=== PATIENT | female | born 1980 | race Caucasian/White ===

== ENCOUNTER 2018-10-29 10:55 | Emergency (ER) | payer OTHER ==
[2018-10-29 11:11] VITALS: BP 116/72; PULSE 64; TEMP 98.4; BMI 24.0
--- NOTE | 2018-10-29 11:26 | PDOC ---
History of Present Illness - General Chief Complaint: Pain, Acute Stated Complaint: ABD PAIN Time Seen by Provider: 10/29/18 11:24 - History of Present Illness Initial Comments: 38yo F with PMH of HTN presenting with lower abdominal pain. Patient states she has had this pain for the past five days. However, since her pain went from intermittent to constant, she decided to come to the ED today. She rates it 8/ 10. No past surgical history. Last bowel movement was yesterday and was a normal formed brown stool without blood. She denies nausea or vomiting. No dysuris, frequency, or hematuria. Patient also reports that she has had vaginal bleeding after the last three times she had sexual intercourse. She is unable to quantify the amount of blood. Denies dyspareunia. Patient endorses a foul odor coming from her vaginal as well as a cheese-like discharge x 2 weeks. She had something similar like this several years ago which went away on its own. Last menstrual period was 10/16/18. No fevers, chills, chest pain, or shortness of breath. Past History - Past Medical History Allergies/Adverse Reactions: Allergies Allergy/AdvReac Type Severity Reaction Status Date / Time No Known Allergies Allergy Verified 10/29/18 11:10 Home Medications: Ambulatory Orders metroNIDAZOLE [Flagyl -] 500 mg PO DAILY #13 tablet 10/29/18 COPD: No GI Disorders: No Hypercholesterolemia: No - Immunization History Immunization Up to Date: No - Suicide/Smoking/Psychosocial Hx Smoking History: Never smoked Have you smoked in the past 12 months: No Information on smoking cessation initiated: No Hx Alcohol Use: No Drug/Substance Use Hx: No Review of Systems - Review of Systems Comments:: Constitutional: no fever, no chills HEENT: no throat pain, no dysphagia Cardiovascular: no chest pain, no palpitations Respiratory: no cough, no shortness of breath Gastrointestinal: +abdominal pain, no nausea Genitourinary: no dysuria, no frequency Musculoskeletal: no myalgia, no arthralgia Skin: no rash, no itching Neurologic: no headache, no weakness *Physical Exam - Vital Signs Last Vital Signs Temp Pulse Resp BP Pulse Ox 98.4 F 64 18 116/72 100 10/29/18 11:09 10/29/18 11:09 10/29/18 11:09 10/29/18 11:09 10/29/18 11:09 - Physical Exam Comments: General: Awake, alert, and fully oriented, in no acute distress Head: No signs of trauma Eyes: EOMI, sclera anicteric ENT: Moist mucus membranes Neck: Normal ROM, supple Lungs: Lungs clear, Normal breath sounds Cardio: Regular rhythm, S1 and S2 present Abdomen: Tender to palpation in suprapubic region. Soft, nondistended. No guarding, no rebound, no masses. No CVA tenderness. Extremities: Normal range of motion, Distal pulses present SKIN: Warm, Dry, normal turgor Neurologic: Cranial nerves II through XII grossly intact. Normal speech Pelvic: External genitalia without erythema, exudate or discharge. Vaginal vault is with [id number]-[id number] discharge. Cervix is of normal color without lesion. The os is closed. There is no bleeding noted. Uterus is noted to be of appropriate size and nontender. No cervical motion tenderness is seen. No masses are palpated. The adnexa are without masses or tenderness. ED Treatment Course - LABORATORY CBC & Chemistry Diagram: 10/29/18 12:15 10/29/18 12:15 Medical Decision Making - Medical Decision Making 38yo F with PMH of HTN presenting with lower abdominal pain. DDX including but not limited to bacterial vaginosis, trichomoniasis, UTI CBC, CMP, UA, UCx No anemia or leukocytosis Electrolytes unremarkable Lipase elevated, however, not greater than three times the upper limit of normal so low suspicion for pancreatitis UA without UTI As laboratory is unable to do wet mount, will presumptively treat for BV/ Trichomoniasis with flagyl Patient discharged 10/29/18 13:47 *DC/Admit/Observation/Transfer Diagnosis at time of Disposition: Vaginal discharge - Discharge Dispostion Disposition: HOME Condition at time of disposition: Stable - Prescriptions Prescriptions: metroNIDAZOLE [Flagyl -] 500 mg PO DAILY #13 tablet - Referrals Referrals: Jere Handley MD [Primary Care Provider] - - Patient Instructions Printed Discharge Instructions: DI for Bacterial Vaginosis, DI for Vaginal Discharge, DI for Trichomoniasis Additional Instructions: You came into the ED for lower abdominal pain and vaginal bleeding. Since you may have an infection called bacterial vaginosis or trichomoniasis, we will treat you with antibiotics. Do NOT drink alcohol while taking this medicine. Prescription has been sent to your pharmacy. Follow up with your epic prelude analyst physician this week to discuss this ED visit and for further evaluation of your symptoms. Your care is not complete until you do so. Call and make an appointment. Immediate medical attention is required if you experience: high fevers, chills, persistent vomiting, stop urinating, or any new or concerning symptoms.If you think you have an emergency, call for medical help right away. === Entr en el servicio de urgencias por dolor abdominal bajo y sangrado vaginal. Renae es posible que tenga lani infeccin llamada vaginosis bacteriana o tricomoniasis, lo trataremos con antibiticos. NO kristian alcohol mientras est tomando layne medicamento. La receta ortiz sido enviada a matute farmacia. Ashok un seguimiento con matute mdico obstetra / gineclogo esta semana para hablar sobre esta visita al [place] y para lani evaluacin adicional de nate sntomas. Matute cuidado no est completo hasta que lo ashok. Llame y ashok lani dolly. Se requiere atencin mdica inmediata si experimenta: fiebre ana m, escalofros, vmitos persistentes, dejar de orinar, o cualquier sntoma nuevo o preocupante. Si marshall que tiene lani emergencia, llame a un mdico de inmediato. - Post Discharge Activity
--- NOTE | 2018-10-29 11:29 | PDOC ---
Attending Attestation - HPI HPI: 10/29/18 12:29 The patient is a 38-year-old female, with no past medical history, who presents to the ED with 5 days of diffuse lower abdominal pain. Pain initially was intermittent, but is now becoming more constant which prompted her visit, 8/10 in severity. She is also endorsing vaginal bleeding after intercourse, but she denies having any pain during intercourse. She does note having cheesy vaginal discharge for the past 2 weeks that is foul-smelling. The patient denies any frequency, urgency, hesitancy, dysuria, or hematuria. Denies any fevers, chills, nausea, vomiting, diarrhea, or constipation. Denies any chest pain or shortness of breath. Allergies: NKA. Social History: None reported Surgical History: None reported PCP: Dr. Jere Handley <Gisselle Nathan - Last Filed: 10/29/18 12:30> - Resident Resident Name: Evelyn Contreras - Physicial Exam PE: 10/31/18 17:13 Agree with resident exm. Patient is alert and oriented x 4. Lungs are clear. Heart: regular rate and rhythm with no murmurs. Abdomen soft, non tender, non distended. - Medical Decision Making 10/31/18 17:15 Pt presents to the ED complaining of of pelvic pain after intercourse. also complaining of increased vaginal discharge. Pelvic exam consistent with trichomonas. Will treat with flagyl and send wet prep. <Chika Brown - Last Filed: 10/31/18 17:19> Attestations - Attestations 10/29/18 12:30 Documentation prepared by Gisselle Nathan, acting as medical records field technician for Chika Brown MD. <Gisselle Nathan - Last Filed: 10/29/18 12:30>
[2018-10-29 12:37] LABS: BASO % 0.5 % (0-2.0); EOS % 4.5 % (0-4.5); HEMATOCRIT 38.1 % (32.4-45.2); HEMOGLOBIN 12.9 GM/dL (10.7-15.3); LYMPH % 32.5 % (8-40); MCHC 33.9 g/dl (32.0-36.0); MEAN CELL VOLUME 85.6 fl (80-96); MEAN PLT VOLUME 8.1 fl (7.5-11.1); MONO % 7.3 % (3.8-10.2); NEUT % 55.2 % (42.8-82.8); PLATELET COUNT 212 K/MM3 (134-434); RBC 4.45 M/mm3 (3.60-5.2); RDW 13.3 % (11.6-15.6); WHITE BLOOD COUNT 6.1 K/mm3 (4.0-10.0)
[2018-10-29] MEDS ORDERED: metroNIDAZOLE 250 MG TABLET PO ONE (12:51)
[2018-10-29 13:01] LABS: ALBUMIN 3.9 g/dl (3.4-5.0); ALK PHOS 68 U/L (45-117); ANION GAP 3 MMOL/L (8-16); BILIRUBIN,TOTAL 0.2 mg/dL (0.2-1); BLOOD UREA NITROGEN 18 mg/dL (7-18); CALCIUM 8.9 mg/dL (8.5-10.1); CHLORIDE 106 mmol/L (98-107); CO2 27 mmol/L (21-32); CREATININE 0.8 mg/dL (0.55-1.3); GLUCOSE,RANDOM 69 mg/dL (74-106); LIPASE 489 U/L (73-393); POTASSIUM 3.7 mmol/L (3.5-5.1); SGOT/AST 18 U/L (15-37); SGPT/ALT 24 U/L (13-61); SODIUM 135 mmol/L (136-145); TOT PROT 7.8 g/dl (6.4-8.2)
[2018-10-29] MEDS ORDERED: metroNIDAZOLE 250 MG TABLET ONE (13:03)
[2018-10-29 13:37] LABS: PH,URINE 6.5 (5.0-8.0); URINE APPEARANCE CLEAR; URINE BILIRUBIN NEGATIVE (NEGATIVE); URINE COLOR YELLOW; URINE GLUCOSE (UA) NEGATIVE (NEGATIVE); URINE KETONE NEGATIVE (NEGATIVE); URINE LEUK ESTERASE TRACE (NEGATIVE); URINE NITRITE NEGATIVE (NEGATIVE); URINE PROTEIN NEGATIVE (NEGATIVE); URINE UROBILINOGEN 0.2 mg/dL (0.2-1.0)
[2018-10-29 14:23] LABS: EPI CELLS 2.5 /HPF (0-5/HPF); URINE BACTERIA 1574.6 /hpf (NEGATIVE); URINE RBC 0.3 /hpf (0-4); URINE WBC 4.7 /hpf (0-5)
== END 2018-10-29 14:01 | disposition home or self-care (01) ==
LOC: JER 10:55
DX: N89.8 Other specified noninflammatory disorders of vagina (principal); I10 Essential (primary) hypertension
CPT/HCPCS: 36415; 80053; 81003; 83690; 84703; 85025; 87086; 87186; 99284-25

== ENCOUNTER 2023-07-10 11:21 | Emergency (ER) | payer OTHER ==
[2023-07-10 11:47] VITALS: BP 120/80; PULSE 85; RESP 18; TEMP 98.6; BMI 21.2
[2023-07-10] MEDS ORDERED: MECLIZINE HCL 25 MG TABLET (FP) PO ONE (12:35)
[2023-07-10] MEDS ORDERED: ACETAMINOPHEN 1000 MG/100 ML BAG IVPB ONE (12:40)
[2023-07-10] MEDS ORDERED: LACTATED RINGERS SOLUTION 1,000 ML/1,000 ML INFUS.BAG IV SCH ×2 (12:45→16:15)
[2023-07-10] MEDS ORDERED: MECLIZINE HCL 25 MG TABLET (FP) ONE (12:59)
[2023-07-10] MEDS ORDERED: ACETAMINOPHEN INJECTION 100 ML IVPB ONE (12:59)
[2023-07-10 13:19] LABS: BASO % 0.2 % (0-2.0); EOS % 0.5 % (0-4.5); HEMATOCRIT 39.4 % (32.4-45.2); HEMOGLOBIN 13.5 GM/dL (10.7-15.3); LYMPH % 17.3 % (8-40); MCH 28.9 pg (25.7-33.7); MCHC 34.3 g/dl (32.0-36.0); MEAN PLT VOLUME 7.9 fl (7.5-11.1); MONO % 6.8 % (3.8-10.2); NEUT % 75.2 % (42.8-82.8); PLATELET COUNT 314 10^3/uL (134-434); RBC 4.68 M/mm3 (3.60-5.2); RDW 12.8 % (11.6-15.6); WHITE BLOOD COUNT 9.4 K/mm3 (4.0-10.0)
[2023-07-10 13:49] LABS: CALCIUM 9.9 mg/dL (8.5-10.1)
[2023-07-10 13:50] LABS: ALBUMIN 4.2 g/dl (3.4-5.0); BLOOD UREA NITROGEN 16.6 mg/dL (7-18)
[2023-07-10 13:52] LABS: MAGNESIUM 2.5 mg/dL (1.8-2.4)
[2023-07-10 13:53] LABS: CREATININE 0.8 mg/dL (0.55-1.3)
[2023-07-10 13:55] LABS: BILIRUBIN,TOTAL 0.5 mg/dL (0.2-1)
[2023-07-10 14:01] LABS: TOT PROT 8.4 g/dl (6.4-8.2)
[2023-07-10] MEDS ORDERED: METOCLOPRAMIDE HCL INJECTION 10 MG/2 ML VIAL IVPUSH ONE (16:04)
[2023-07-10] MEDS ORDERED: METOCLOPRAMIDE HCL INJECTION 10 MG/2 ML VIAL ONE (16:41)
[2023-07-10 17:12] LABS: BASO % 0.7 % (0-2.0); EOS % 0.9 % (0-4.5); HEMATOCRIT 36.7 % (32.4-45.2); HEMOGLOBIN 12.6 GM/dL (10.7-15.3); LYMPH % 29.9 % (8-40); MCH 28.9 pg (25.7-33.7); MCHC 34.2 g/dl (32.0-36.0); MEAN CELL VOLUME 84.6 fl (80-96); MEAN PLT VOLUME 7.9 fl (7.5-11.1); MONO % 7.9 % (3.8-10.2); NEUT % 60.6 % (42.8-82.8); PLATELET COUNT 277 10^3/uL (134-434); RBC 4.34 M/mm3 (3.60-5.2); WHITE BLOOD COUNT 8.8 K/mm3 (4.0-10.0)
[2023-07-10 17:18] LABS: INR 1.11 (0.83-1.09); PROTHROMBIN TIME (PATIENT) 12.9 SEC (9.7-13.0)
== END 2023-07-10 20:45 | disposition home or self-care (01) ==
LOC: JER 11:21
PROC: 3E033NZ Introduction of Analgesics, Hypnotics, Sedatives into Peripheral Vein, Percutaneous Approach (ICD-10-PCS; principal; 2023-07-10)
PROC: 3E033GC Introduction of Other Therapeutic Substance into Peripheral Vein, Percutaneous Approach (ICD-10-PCS; 2023-07-10)
PROC: 3E033GC Introduction of Other Therapeutic Substance into Peripheral Vein, Percutaneous Approach (ICD-10-PCS; 2023-07-10)
DX: R51.9 Headache, unspecified (principal); H93.13 Tinnitus, bilateral; R11.0 Nausea; K62.5 Hemorrhage of anus and rectum
CPT/HCPCS: 36415; 70450-TC; 80053; 83735; 84703; 85025; 85610; 85730; 86850; 86900; 86901; 87086; 93005; 93010; 99285-25